=== PATIENT | female | born 2000 | race Two or more races ===

== ENCOUNTER 2021-10-19 09:04 | Emergency (ER) | payer OTHER ==
[~2021-10-19] VITALS: Ht 157.5 cm; Wt 52.2 kg
[2021-10-19] MEDS ORDERED: NORT25CA PO (09:20)
--- NOTE | 2021-10-19 09:21 | NUR ---
sorethroat with fever and chills x 1 day
[2021-10-19] MEDS ORDERED: IV NS 0.9% 1,000 ML BAG IV ONE (09:30)
--- NOTE | 2021-10-19 09:30 | NUR ---
throat strip snd to lab coved swap and BCR COVED SWAP SEND TO LAB
[2021-10-19 09:59] LABS: BASOPHILS % (AUTO) 0.4 % (0.0-2.0); EOSINOPHILS % (AUTO) 0.2 % (0.0-6.0); HEMATOCRIT 44 % (33-45); LYMPHOCYTES # (AUTO) 0.4 K/uL (0.8-4.8); LYMPHOCYTES % (AUTO) 4.1 % (20.0-44.0); MEAN CORPUSCULAR HGB CONC 34 g/dl (31.0-36.0); MEAN CORPUSCULAR VOLUME 89 fL (82-100); MONOCYTES # (AUTO) 0.4 K/uL (0.1-1.30); MONOCYTES % (AUTO) 4.3 % (2.0-12.0); NEUTROPHILS # (AUTO) 9.3 K/uL (1.8-8.9); PLATELET COUNT (AUTO) 187 K/uL (150-450); WHITE BLOOD COUNT (AUTO) 10.2 K/uL (4.3-11.0)
[2021-10-19 10:06] LABS: CALCIUM, SERUM 9.5 mg/dL (8.5-10.1); CREATININE 0.8 mg/dL (0.6-1.3); POTASSIUM 3.4 mmol/L (3.5-5.1)
--- NOTE | 2021-10-19 10:30 | NUR ---
BLOOD DROW AND SENT TO LAB RESPIRATION SPONT AND EASY
[2021-10-19] MEDS ORDERED: ALBU18HF2 INH (11:32)
--- NOTE | 2021-10-19 11:45 | NUR ---
HR 113 B/MIN DR. MATUTE NOTEFY AND AWRE THIS BAS LINE FOR PT IT HERE NORMALE D/C INSTRACTILON AND FALLOW UP CARE GIVEN TO PT FULLY AND VERBLIZED UNDERSTOOD D/C HOME WITH RX
[2021-10-19 11:58] VITALS: BP 120/71
== END 2021-10-19 11:59 | disposition home or self-care (01) ==
LOC: ER 09:23
DX: U07.1 COVID-19 (principal); Z28.310 Unvaccinated for COVID-19; J02.9 Acute pharyngitis, unspecified; I49.8 Other specified cardiac arrhythmias; Z86.16 Personal history of COVID-19; Z88.8 Allergy status to other drugs, medicaments and biological substances; Z87.820 Personal history of traumatic brain injury
CPT/HCPCS: 36415; 80048; 85025; 87070; 87426; 87880; 96360; 99284; C9803 ×2; J7030; U0003; 86403-TC